=== PATIENT | female | born 1980 | race Two or more races ===

== ENCOUNTER → 2022-10-27 | Outpatient (CLI) | payer BC ==
[2022-10-27 07:22] LABS: Basophils # (auto) 0.1 10 ^3/uL (0-0.2); Basophils % (auto) 1.2 % (0.0-2.0); Eosinophils # (auto) 0.4 10 ^3/uL (0-0.8); Eosinophils % (auto) 4.7 % (0.0-7.0); Hematocrit 40.5 % (36.0-46.0); Hemoglobin 13.8 g/dL (12.2-16.2); Lymphocytes # (auto) 2.6 10 ^3/uL (0.4-5.4); Mean Corpuscular Hemoglobin 33.1 pg (28.0-32.0); Mean Corpuscular Hgb Conc. 34.2 g/dL (32.0-36.0); Mean Corpuscular Volume 96.8 fL (80.0-100.0); Monocytes # (auto) 0.6 10 ^3/uL (0-1.3); Monocytes % (auto) 7.7 % (0.0-12.0); Neutrophils % (auto) 52.4 % (37.0-80.0); Red Blood Cells 4.19 10^6/uL (4.0-5.20); Red Cell Distribution Width 12.5 % (11.8-14.3); White Blood Cell 7.5 10^3/uL (4.4-10.8)
[2022-10-27 07:37] LABS: Urine Bacteria FEW /hpf (None Seen); Urine Blood Negative /uL (Negative); Urine Clarity Clear (Clear); Urine Color Colorless (Yellow); Urine Protein, UAD Negative (Negative); Urine Urobilinogen Normal (Negative); Urine WBC 2 /hpf (0 - 5)
[2022-10-27 07:59] LABS: Alanine Aminotransferase 15 U/L (7-40); Albumin 4.7 g/dL (3.2-4.8); Alkaline Phosphatase 58 U/L (46-116); Anion Gap 6 (5-15); Aspartate Aminotransferase 10 U/L (13-40); BUN/Creatinine Ratio 15.6 (10.0-20.0); Blood Urea Nitrogen 12 mg/dL (9-23); Calcium 9.5 mg/dL (8.7-10.4); Carbon Dioxide 27 mmol/L (20-30); Chloride 105 mmol/L (98-107); Glucose 93 mg/dL (74-106); Potassium 4.1 mmol/L (3.5-5.1); Sodium 138 mmol/L (136-145)
[2022-10-27 08:00] LABS: Total Protein 7.9 g/dL (5.7-8.2)
[2022-10-27 08:02] LABS: Bilirubin, Total 1.4 mg/dL (0.2-1.0)
[2022-10-27 08:34] LABS: Triglycerides 90 mg/dL (< 150)
[2022-10-27 08:35] LABS: LDL Cholesterol 78 mg/dL (< 100)
[2022-10-27 08:36] LABS: Cholesterol 159 mg/dL (< 200); HDL Cholesterol 70 mg/dL (40-59)
== END | disposition home or self-care (01) ==
LOC: LAB 06:53
DX: Z00.01 Encounter for general adult medical examination with abnormal findings (principal)
CPT/HCPCS: 36415; 80053; 80061; 81001; 82306; 83036; 84443; 85025

== ENCOUNTER 2023-01-04 08:51 | Emergency (ER) | payer BC ==
[~2023-01-04] VITALS: Ht 162.6 cm; Wt 50.4 kg
[2023-01-04 09:35] VITALS: BP 148/50; PULSE 87; RESP 16; TEMP 98.6; O2SAT 98
== END 2023-01-04 11:09 | disposition home or self-care (01) ==
LOC: ER 08:51
DX: G56.02 Carpal tunnel syndrome, left upper limb (principal)
CPT/HCPCS: 73110